=== PATIENT | male | born 1995 | race Caucasian/White ===

== ENCOUNTER 2017-07-29 13:57 | Emergency (ER) | payer BC, MEDICAID ==
[~2017-07-29] VITALS: Ht 177.8 cm; Wt 146.0 kg
[~2017-07-29 13:57] MED LIST: ACET-141 PO; BACTDS PO; BEN25 PO; CARB15DR50 LEFT EAR; CLOT30CR24 TOP; DICY10CA60 PO; FLUC150T17 PO; HYDR-3011 PO; IBUP800T25 PO; NYST15CR16 TOP; PRED20TA PO; TRAM50TA2 PO
[2017-07-29 14:36] VITALS: Ht 177.8 cm; Wt 146.0 kg
--- NOTE | 2017-07-29 16:50 | ERD ---
ER Documentation Chief Complaint Date/Time DATE: 07/29/17 TIME: 16:48 Chief Complaint jeffries x 1 month; no n/v or dizziness HPI This 22-year-old male patient presents to the emergency department today with a right-sided headache, headache is behind his right eye radiating toward occipitalis. Patient reports headache has been present for 4 weeks intermittently, reports postnasal drip and nasal congestion, has history of headaches denies this is a worse headache he has ever felt, denies history of seasonal allergies, fever, cough, or sputum production. ROS All systems reviewed and are negative except as per history of present illness. Medications Home Meds Active Scripts Fluticasone Propionate (Flonase Allergy Relief) 9.9 Ml [place].susp, 2 SPRAY NASAL DAILY, #1 BOTTLE TO EACH NOSTRIL Prov:KARLIE,PATRICIA 07/29/17 Clarithromycin* (Clarithromycin*) 500 Mg Tablet, 500 MG PO BID for 10 Days, TAB Prov:KARLIE,PATRICIA 07/29/17 Hydroxyzine Hcl* (Hydroxyzine Hcl*) 25 Mg Tablet, 25 MG PO Q8H Y for ITCHING, # 30 TAB Prov:LEIA MISTRY NP 05/07/16 Sulfamethoxazole-Trimethoprim* (Bactrim* DS) 800-160 Mg Tab, 1 TAB PO BID for 10 Days, TAB Prov:LEIA MISTRY NP 05/07/16 Ibuprofen* (Motrin*) 800 Mg Tab, 800 MG PO Q6, #30 TAB Prov:YAIMA VENCES MD 09/10/15 Tramadol HCl (Tramadol HCl) 50 Mg Tab, 50 MG PO Q6H Y for PAIN, #20 TAB Prov:YAIMA VENCES MD 09/10/15 Clotrimazole* (Clotrimazole* AF) 1% - 30 Gm Cream.gm., 1 APPLIC TOP BID for 10 Days, TUB Prov:JALIL PIERCE PA-C 07/07/15 Carbamide Peroxide* (Debrox*) 6.5% - 15 Ml Drops, 10 DROP LEFT EAR BID for 4 Days, BOTTLE Prov:JALIL PIERCE PA-C 07/07/15 Acetaminophen* (Acetaminophen*) 500 MG Extra Strength Tablet, 500 MG PO Q4H Y for PAIN AND OR ELEVATED TEMP, #20 TAB Prov:JALIL PIERCE PA-C 07/07/15 Fluconazole* (Diflucan*) 150 Mg Tablet, 150 MG PO ONCE, #1 TAB Prov:CURT JEAN BAPTISTE 06/30/15 Clotrimazole* (Clotrimazole* AF) 1% - 30 Gm Cream.gm., 1 APPLIC TOP BID for 7 Days, TUB Prov:CURT JEAN BAPTISTE 06/30/15 Nystatin-Triamcinolone* (Nystatin-Triamcinolone* Cream) 15 Gm Cream.gm., 1 APPLIC TOP BID for 7 Days, TUB Prov:KAREN BACA MD 06/28/15 Prednisone* (Prednisone*) 20 Mg Tab, 20 MG PO DAILY for 5 Days Prov:BULMARO GUTHRIE PA-C 06/07/15 Diphenhydramine Hcl* (Benadryl*) 25 Mg Cap, 25 MG PO Q6, #20 CAP Prov:BULMARO GUTHRIE PA-C 06/07/15 Dicyclomine Hcl* (Bentyl*) 10 Mg Capsule, 10 MG PO QID, #20 CAP Prov:BULMARO GUTHRIE PA-C 06/07/15 Reported Medications [None ] No Conflict Check 06/08/13 Allergies Allergies: Coded Allergies: Penicillins (Verified Allergy, Mild, 11/05/15) Uncoded Allergies: IV CONTRAST (Allergy, Unknown, 06/28/15) PMhx/Soc History of Surgery: No Anesthesia Reaction: No Hx Neurological Disorder: No Hx Respiratory Disorders: Yes (ASTHMA) Hx Cardiac Disorders: No Hx Psychiatric Problems: No Hx Miscellaneous Medical Probl: No Hx Alcohol Use: No Hx Substance Use: No Hx Tobacco Use: No Physical Exam Vitals Vital Signs Date Time Temp Pulse Resp B/P Pulse Ox O2 Delivery O2 Flow Rate FiO2 07/29/17 14:36 98.2 71 18 136/74 97 Vitals stable, triage notes reviewed Physical Exam Const Well-nourished well-appearing well-hydrated male patient in no acute Head: Atraumatic Eyes: Normal Conjunctiva, PERRLA, EOMI ENT: Lateral tympanic membranes retracted, auditory canals clear, nasal mucosa edematous, +3, mucous noted, no bleeding points, right maxillary frontal sinus pressure to palpation, pressure behind right eye with leaning forward. Pharynx is pink, uvula rises and falls with pronation. Neck: Full range of motion..~ No meningismus.No cervical chain nodes palpable Resp: Clear to auscultation bilaterally, No rales wheezes or rhonchi Cardio: Abd: Skin: Back: Neuro: Alert and oriented Face: EOMI, face and pharynx with normal sensation and function Motor: Normal strength throughout Sensation: Normal sensation throughout Speech: Normal Cerebel: Normal coordination Normal gait Normal finger to nose DTR: 2+ and symmetric upper/lower extremities Psych: Normal Mood and Affect Results 24 hrs Current Medications Medications (Trade) Dose Ordered Sig/Shane Route PRN Reason Start Time Stop Time Status Last Admin Dose Admin Ibuprofen (Motrin) 600 mg ONCE ONCE PO 07/29/17 17:00 07/29/17 17:01 DC 07/29/17 17:04 Procedures/MDM This 22-year-old male patient presents to emergency department today for evaluation of a right-sided headache, pressure behind his eyes, symptoms have been present intermittently 4 weeks, patient has history of headaches in the past this is not his worse headache. He has taken [id number] Tylenol for symptomatic relief with little relief of symptoms. Denies photosensitivity, nausea, vomiting, reports postnasal drip, physical exam and history supports allergic rhinitis/sinusitis, today's treatment includes breaking headache with Toradol 15 intramuscularly, patient reassessed with improvement in headache symptoms. Patient will be discharged home with Clarithromycin 1 tab p.o. twice daily 10 days, Flonase nasal spray 2 squirts each nostril once a day, Claritin 10 mg 1 tab p.o. daily, follow-up with primary care physician, return to emergency department if symptoms fail to improve as anticipated. Patient is stable with no new complaints during ER course, clinically there is no current evidence to suggest meningitis, sepsis,TIA, CVA, subarachnoid bleed or any other emergent condition appearing to require further evaluation or hospitalization. I feel the patient is stable for discharge at this time. I have discussed results, examination findings, the treatment plan with the patient and family present prior to discharge. Indications for emergent reevaluation, side effects of medication were also discussed. All questions were answered. Patient verbalizes understanding and agrees with plan of care. Departure Diagnosis: Primary Impression: Sinusitis, acute Sinusitis location: maxillary Recurrence: not specified as recurrent Qualified Code: J01.00 - Acute maxillary sinusitis, recurrence not specified Condition: Good Patient Instructions: Acute Sinusitis, Preventing Sinusitis Referrals: [facility] Additional Instructions: Thank you for for coming to [facility] for your care today. Please ask your nurse or provider if you have questions about your care today and do not leave until all your questions have been answered. Please use any medications given as directed and follow-up with your doctor (or the doctor you were referred to) in the next 2-3 days. If you do not have a primary care doctor you may follow up at the [facility] (listed below). You may also use motrin and tylenol as needed for fever and/or pain unless instructed otherwise by your provider or nurse. Indications for more urgent follow-up have been discussed, but you may return to the Emergency Department at ANY time for any worrisome or worsening symptoms. If you have abdominal pain, please know that no test or exam you received is perfect and you should follow up within 8 hours for continued pain. If you had any imaging studies today, such as an X-Ray or CT Scan, these studies will be reviewed later by a radiologist. You will be called if there are important findings that were not identified today, so make sure the contact information you provided at registration is correct. If you received any narcotic pain control medicine today, such as Vicodin, Morphine or Dilaudid, your coordination and judgment may be affected for a number of hours. Please do not drive or operate heavy machinery, and you may want someone to assist you at home. If you were given a prescription for narcotic medication, be aware that it is very addictive- use sparingly and only if necessary. PATRICIA ZIEGLER Jul 29, 2017 16:50
[2017-07-29] MEDS ORDERED: IBUPROFEN 600 MG TAB PO ONE (17:00)
[2017-07-29] MEDS ORDERED: CLAR500T PO (18:00)
[2017-07-29] MEDS ORDERED: FLUT9.9S NASAL (18:01)
[2017-07-29] MEDS ORDERED: LORA10CA PO (18:04)
== END 2017-07-29 18:50 | disposition home or self-care (01) ==
LOC: FTE 13:57
DX: J01.00 Acute maxillary sinusitis, unspecified (principal); J45.909 Unspecified asthma, uncomplicated; R40.2142 Coma scale, eyes open, spontaneous, at arrival to emergency department; R40.2252 Coma scale, best verbal response, oriented, at arrival to emergency department; R40.2362 Coma scale, best motor response, obeys commands, at arrival to emergency department
CPT/HCPCS: 99283

== ENCOUNTER 2017-08-08 07:33 | Emergency (ER) | payer BC, MEDICAID ==
[~2017-08-08] VITALS: Ht 175.3 cm; Wt 146.0 kg
[~2017-08-08 07:33] MED LIST changes: +CLAR500T PO; +FLUT9.9S NASAL; +LORA10CA PO
[2017-08-08 07:37] VITALS: Ht 175.3 cm; Wt 146.0 kg
--- NOTE | 2017-08-08 08:12 | ERD ---
ER Documentation Chief Complaint Date/Time DATE: 08/08/17 TIME: 08:00 Chief Complaint c/o nausea s/p swallowed a sips of mouthwash at 6am HPI 22-year-old male coming in complaining of swallowed mouthwash earlier this morning. Patient was using [employer] mouthwash and took a gulp by accident. Denies any abdominal pain. Denies vomiting. Denies nausea. Has not taken any medication since drinking the mouthwash. States he overall feels "normal. Medical problems: Denies Allergies to medication: Penicillin Surgical history: Denies Social history: Denies ROS All systems reviewed and are negative except as per history of present illness. Medications Home Meds Active Scripts Loratadine* (Claritin*) 10 Mg Capsule, 10 MG PO DAILY for 30 Days, CAP Prov:KARLIE,PATRICIA 07/29/17 Fluticasone Propionate (Flonase Allergy Relief) 9.9 Ml [place].susp, 2 SPRAY NASAL DAILY, #1 BOTTLE TO EACH NOSTRIL Prov:KARLIE,PATRICIA 07/29/17 Clarithromycin* (Clarithromycin*) 500 Mg Tablet, 500 MG PO BID for 10 Days, TAB Prov:KARLIE,PATRICIA 07/29/17 Hydroxyzine Hcl* (Hydroxyzine Hcl*) 25 Mg Tablet, 25 MG PO Q8H Y for ITCHING, # 30 TAB Prov:LEIA MISTRY NP 05/07/16 Sulfamethoxazole-Trimethoprim* (Bactrim* DS) 800-160 Mg Tab, 1 TAB PO BID for 10 Days, TAB Prov:LEIA MISTRY NP 05/07/16 Ibuprofen* (Motrin*) 800 Mg Tab, 800 MG PO Q6, #30 TAB Prov:YAIMA VENCES MD 09/10/15 Tramadol HCl (Tramadol HCl) 50 Mg Tab, 50 MG PO Q6H Y for PAIN, #20 TAB Prov:YAIMA VENCES MD 09/10/15 Clotrimazole* (Clotrimazole* AF) 1% - 30 Gm Cream.gm., 1 APPLIC TOP BID for 10 Days, TUB Prov:JALIL IPERCE PA-C 07/07/15 Carbamide Peroxide* (Debrox*) 6.5% - 15 Ml Drops, 10 DROP LEFT EAR BID for 4 Days, BOTTLE Prov:JALIL PIERCE PA-C 07/07/15 Acetaminophen* (Acetaminophen*) 500 MG Extra Strength Tablet, 500 MG PO Q4H Y for PAIN AND OR ELEVATED TEMP, #20 TAB Prov:JALIL PIERCE PA-C 07/07/15 Fluconazole* (Diflucan*) 150 Mg Tablet, 150 MG PO ONCE, #1 TAB Prov:CURT JEAN BAPTISTE 06/30/15 Clotrimazole* (Clotrimazole* AF) 1% - 30 Gm Cream.gm., 1 APPLIC TOP BID for 7 Days, TUB Prov:CURT JEAN BAPTISTE 06/30/15 Nystatin-Triamcinolone* (Nystatin-Triamcinolone* Cream) 15 Gm Cream.gm., 1 APPLIC TOP BID for 7 Days, TUB Prov:KAREN BACA MD 06/28/15 Prednisone* (Prednisone*) 20 Mg Tab, 20 MG PO DAILY for 5 Days Prov:BULMARO GUTHRIE PA-C 06/07/15 Diphenhydramine Hcl* (Benadryl*) 25 Mg Cap, 25 MG PO Q6, #20 CAP Prov:BULMARO GUTHRIE PA-C 06/07/15 Dicyclomine Hcl* (Bentyl*) 10 Mg Capsule, 10 MG PO QID, #20 CAP Prov:BULMARO GUTHRIE PA-C 06/07/15 Reported Medications [None ] No Conflict Check 06/08/13 Allergies Allergies: Coded Allergies: Penicillins (Verified Allergy, Mild, 08/08/17) Uncoded Allergies: IV CONTRAST (Allergy, Unknown, 06/28/15) PMhx/Soc History of Surgery: No Anesthesia Reaction: No Hx Neurological Disorder: No Hx Respiratory Disorders: No Hx Cardiac Disorders: No Hx Psychiatric Problems: No Hx Miscellaneous Medical Probl: No Hx Alcohol Use: No Hx Substance Use: No Hx Tobacco Use: No Physical Exam Vitals Vital Signs Date Time Temp Pulse Resp B/P Pulse Ox O2 Delivery O2 Flow Rate FiO2 08/08/17 07:37 98.0 79 18 131/76 97 Physical Exam GENERAL: The patient is well-appearing, well-nourished, in no acute distress CHEST: Clear to auscultation bilaterally. There are no rales, wheezes or rhonchi. HEART: Regular rate and rhythm. No murmurs, clicks, rubs or gallops. No S3 or S4. ABDOMEN:Soft, nontender and nondistended. Good bowel sounds. No rebound or guarding. No gross peritonitis. No gross organomegaly or masses. No Bryant sign or McBurney point tenderness. BACK: No midline or flank tenderness. SKIN: There is no apparent rash or petechiae. The skin is warm and dry. Procedures/MDM MDM: 22 yr old male complaining of swallowed mouth wash. I consulted poison control and they stated patient is fine and there is no concern for poisoning. Given patient has had no symptoms and ingestion was 2 hours ago patient is able to be discharged without complication. I have low suspicion for abdominal upset or complication. Patient's exam was not concerning. Patient is discharged with strict ER precautions and recommended to follow-up with primary care within 1-2 days for close evaluation. Departure Diagnosis: Primary Impression: Swallowing of injurious substance Condition: Stable Patient Instructions: Swallowed Object Referrals: [facility] YOU HAVE RECEIVED A MEDICAL SCREENING EXAM AND THE RESULTS INDICATE THAT YOU DO NOT HAVE A CONDITION THAT REQUIRES URGENT TREATMENT IN THE EMERGENCY DEPARTMENT. FURTHER EVALUATION AND TREATMENT OF YOUR CONDITION CAN WAIT UNTIL YOU ARE SEEN IN YOUR DOCTORS OFFICE WITHIN THE NEXT 1-2 DAYS. IT IS YOUR RESPONSIBILITY TO MAKE AN APPOINTMENT FOR FOLOW-UP CARE. IF YOU HAVE A PRIMARY DOCTOR --you should call your primary doctor and schedule an appointment IF YOU DO NOT HAVE A PRIMARY DOCTOR YOU CAN CALL OUR PHYSICIAN REFERRAL HOTLINE AT IF YOU CAN NOT AFFORD TO SEE A PHYSICIAN YOU CAN CHOSE FROM THE FOLLOWING [facility] [address] [facility] [address] [facility] [address] [facility] [address] [facility] [address] [facility]. [address] Additional Instructions: FOLLOW UP WITH YOUR PRIMARY CARE PHYSICIAN TOMORROW.Return to this facility if you are not improving as expected. CHI MONTGOMERY PA-C Aug 08, 2017 08:12
== END 2017-08-08 08:07 | disposition home or self-care (01) ==
LOC: FTE 07:33
DX: T65.91XA Toxic effect of unspecified substance, accidental (unintentional), initial encounter (principal)
CPT/HCPCS: 99282

== ENCOUNTER 2017-08-27 15:17 | Emergency (ER) | payer BC, MEDICAID ==
[~2017-08-27] VITALS: Ht 175.3 cm; Wt 145.0 kg
[2017-08-27 15:29] VITALS: Ht 175.3 cm; Wt 145.0 kg
[2017-08-27] MEDS ORDERED: IBUPROFEN 800 MG TAB PO ONE (17:30)
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
--- NOTE | 2017-08-27 18:11 | RADRPT ---
PROCEDURE: XR Right Ankle. CLINICAL INDICATION: Right ankle pain. TECHNIQUE: 3 views. Frontal, lateral, and oblique. COMPARISON: None. FINDINGS: There is no acute fracture or dislocation. There is an old healed fracture of the distal fibula. The soft tissues are normal. Articular surfaces are intact. There is no lytic or blastic lesion. There is no radiopaque foreign body. IMPRESSION: 1. Old healed fracture of the distal fibula. 2. Otherwise unremarkable images of the right ankle. RPTAT: QQ .Joey Trevino MD, MD Date Time Electronically viewed and signed by .Joey Trevino MD, on 08/27/2017 18:11 .R/
[2017-08-27] MEDS ORDERED: NAPR-260 PO (18:26)
[2017-08-27] MEDS ORDERED: ACET500C5 PO (18:26)
== END 2017-08-27 18:49 | disposition home or self-care (01) ==
LOC: FTE 15:17
DX: M25.571 Pain in right ankle and joints of right foot (principal)

== ENCOUNTER 2017-10-01 13:13 | Emergency (ER) | payer BC, MEDICAID ==
[~2017-10-01] VITALS: Ht 175.3 cm; Wt 145.1 kg
[~2017-10-01 13:13] MED LIST changes: +ACET500C5 PO; +NAPR-260 PO
[2017-10-01 13:15] VITALS: Ht 175.3 cm; Wt 145.1 kg
--- NOTE | 2017-10-01 14:30 | ERD ---
ER Documentation Chief Complaint Chief Complaint SOB WITH CHEST WALL PRESSURE RADIATES UP TO THROAT HPI 22-year-old male presents emergency department with chest wall pain that radiates to his throat. Stated that this started yesterday before working, he feels like throat is closing every time he thinks about his job. Denies headache, dizziness, blurred vision, neck pain, shoulder pain, abdominal pain, nausea, vomiting, constipation, diarrhea, fever, chills, urinary symptoms , recent long travel, recent exposure to any illness, difficulty walking. Denies auditory/visual hallucinations/delusions. Not suicidal. Not homicidal. Has the capacity to decide for himself. Allergies to penicillin and contrast. Past medical history: None. No surgical history. Social: Works at [employer]. Denies smoking, use of alcoholic beverages, use of illegal drugs. ROS All systems reviewed and are negative except as per history of present illness. Medications Home Meds Active Scripts Azithromycin* (Zithromax*) 250 Mg Tablet, 250 MG PO .ZPACK DIRECTED, #6 TAB TAKE 500 MG (2 TABS) THE FIRST DAY THEN 250 MG (1 TAB) DAYS 2-5 Prov:MARYGABRIELLABLAINE 10/01/17 Ibuprofen* (Motrin*) 800 Mg Tab, 800 MG PO Q8 Y for PAIN AND OR ELEVATED TEMP, # 30 TAB Prov:BLAINE DO 10/01/17 Hydroxyzine Hcl* (Hydroxyzine Hcl*) 50 Mg Tablet, 50 MG PO Q6 Y for ANXIETY, # 40 TAB Prov:BLAINE DO 10/01/17 Acetaminophen* (Tylophen*) 500 Mg Capsule, 1 CAP PO Q6H Y for PAIN AND OR ELEVATED TEMP, #30 CAP Prov:MINO MCGINNIS PA-C 08/27/17 Naproxen* (Naprosyn*) 500 Mg Tablet, 500 MG PO BID Y for PAIN AND/OR INFLAMMATION, #30 TAB Prov:MINO MCGINNIS PA-C 08/27/17 Loratadine* (Claritin*) 10 Mg Capsule, 10 MG PO DAILY for 30 Days, CAP Prov:KARLIEPATRICIA 07/29/17 Fluticasone Propionate (Flonase Allergy Relief) 9.9 Ml [place].susp, 2 SPRAY NASAL DAILY, #1 BOTTLE TO EACH NOSTRIL Prov:KARLIE,PATRICIA 07/29/17 Clarithromycin* (Clarithromycin*) 500 Mg Tablet, 500 MG PO BID for 10 Days, TAB Prov:KARLIE,PATRICIA 07/29/17 Hydroxyzine Hcl* (Hydroxyzine Hcl*) 25 Mg Tablet, 25 MG PO Q8H Y for ITCHING, # 30 TAB Prov:LEIA MISTRY KISS MIXER 05/07/16 Sulfamethoxazole-Trimethoprim* (Bactrim* DS) 800-160 Mg Tab, 1 TAB PO BID for 10 Days, TAB Prov:LEIA MISTRY KISS MIXER 05/07/16 Ibuprofen* (Motrin*) 800 Mg Tab, 800 MG PO Q6, #30 TAB Prov:YAIMA VENCES MD 09/10/15 Tramadol HCl (Tramadol HCl) 50 Mg Tab, 50 MG PO Q6H Y for PAIN, #20 TAB Prov:YAIMA VENCES MD 09/10/15 Clotrimazole* (Clotrimazole* AF) 1% - 30 Gm Cream.gm., 1 APPLIC TOP BID for 10 Days, TUB Prov:JALIL PIERCE PA-C 07/07/15 Carbamide Peroxide* (Debrox*) 6.5% - 15 Ml Drops, 10 DROP LEFT EAR BID for 4 Days, BOTTLE Prov:JALIL PIERCE-C 07/07/15 Acetaminophen* (Acetaminophen*) 500 MG Extra Strength Tablet, 500 MG PO Q4H Y for PAIN AND OR ELEVATED TEMP, #20 TAB Prov:JALIL PIERCEC 07/07/15 Fluconazole* (Diflucan*) 150 Mg Tablet, 150 MG PO ONCE, #1 TAB Prov:CURT JEAN BAPTISTE 06/30/15 Clotrimazole* (Clotrimazole* AF) 1% - 30 Gm Cream.gm., 1 APPLIC TOP BID for 7 Days, TUB Prov:CURT JEAN BAPTISTE 06/30/15 Nystatin-Triamcinolone* (Nystatin-Triamcinolone* Cream) 15 Gm Cream.gm., 1 APPLIC TOP BID for 7 Days, TUB Prov:KAREN BACA MD 06/28/15 Prednisone* (Prednisone*) 20 Mg Tab, 20 MG PO DAILY for 5 Days Prov:BULMARO GUTHRIE PA-C 06/07/15 Diphenhydramine Hcl* (Benadryl*) 25 Mg Cap, 25 MG PO Q6, #20 CAP Prov:BULMARO GUTHRIE PA-C 06/07/15 Dicyclomine Hcl* (Bentyl*) 10 Mg Capsule, 10 MG PO QID, #20 CAP Prov:BULMARO GUTHRIE PA-C 06/07/15 Reported Medications [None ] No Conflict Check 06/08/13 Allergies Allergies: Coded Allergies: Penicillins (Verified Allergy, Mild, 08/27/17) Uncoded Allergies: IV CONTRAST (Allergy, Mild, 08/27/17) PMhx/Soc Medical and Surgical Hx: pt denies Medical Hx, pt denies Surgical Hx History of Surgery: No Anesthesia Reaction: No Hx Neurological Disorder: No Hx Respiratory Disorders: No Hx Cardiac Disorders: No Hx Psychiatric Problems: No Hx Miscellaneous Medical Probl: No Hx Alcohol Use: No Hx Substance Use: No Hx Tobacco Use: No Smoking Status: Never smoker Physical Exam Vitals Vital Signs Date Time Temp Pulse Resp B/P Pulse Ox O2 Delivery O2 Flow Rate FiO2 10/01/17 13:15 98.5 85 16 134/73 97 Physical Exam Const: [] Head: Atraumatic Eyes: Normal Conjunctiva ENT: Normal External Ears, Nose and Mouth. Except left TM is erythematous. Neck: Full range of motion..~ No meningismus. Resp: Clear to auscultation bilaterally Cardio: Regular rate and rhythm, no murmurs Abd: Soft, non tender, non distended. Normal bowel sounds Skin: No petechiae or rashes Back: No midline or flank tenderness Ext: No cyanosis, or edema Neur: Awake and alert Psych: Normal Mood and Affect. Denies auditory/visual hallucinations/ delusions. Not suicidal. Not homicidal. Has the capacity to decide for himself. Procedures/MDM 22-year-old male presents emergency department with chest wall pain that radiates to his throat. Stated that this started yesterday before working, he feels like throat is closing every time he thinks about his job. Denies headache, dizziness, blurred vision, neck pain, shoulder pain, abdominal pain, nausea, vomiting, constipation, diarrhea, fever, chills, urinary symptoms , recent long travel, recent exposure to any illness, difficulty walking. Denies auditory/visual hallucinations/delusions. Not suicidal. Not homicidal. Has the capacity to decide for himself. Allergies to penicillin and contrast. Past medical history: None. No surgical history. Social: Works at [employer]. Denies smoking, use of alcoholic beverages, use of illegal drugs. Physical exam: Unremarkable Except left TM is erythematous. Denies auditory/ visual hallucinations/delusions. Not suicidal. Not homicidal. Has the capacity to decide for himself. EKG: Sinus rhythm with a ventricular rate of 77 bpm. No evidence of acute myocardial infarction. No STEMI. Patient agreed with the plan of care. Patient stated that he needs a work note and is just anxious to go to work. Prescription: Hydroxyzine. Azithromycin. Motrin. Tylenol. Differential diagnosis: Acute myocardial infarction versus acute coronary syndrome versus pneumonia versus anxiety versus stress anxiety versus tonsillitis versus pharyngitis versus panic attack Final diagnosis: Otitis media left, anxiety due to stress. Follow-up with primary care physician the next 24-48 hours. Come back to emergency department for any new symptoms or any worsening of symptoms. All questions and concerns were answered. Patient verbalized understanding and agreed with the plan of care. Hemodynamically stable on discharge. Departure Diagnosis: Primary Impression: Otitis media Additional Impressions: Stress Anxiety Condition: Stable Additional Instructions: Follow-up with primary care physician the next 24-48 hours. Come back to emergency department for any new symptoms or any worsening of symptoms. All questions and concerns were answered. Patient verbalized understanding and agreed with the plan of care. BLAINE DO Oct 01, 2017 14:30
[2017-10-01] MEDS ORDERED: HYDR-3012 PO (14:31)
[2017-10-01] MEDS ORDERED: IBUP800T25 PO (14:32)
[2017-10-01] MEDS ORDERED: AZIT250T94 PO (14:32)
== END 2017-10-01 14:53 | disposition home or self-care (01) ==
LOC: FTE 13:13
DX: H66.92 Otitis media, unspecified, left ear (principal); F43.9 Reaction to severe stress, unspecified; F41.9 Anxiety disorder, unspecified
CPT/HCPCS: 93005

== ENCOUNTER 2017-10-06 00:04 | Emergency (ER) | payer BC, MEDICAID ==
[~2017-10-06] VITALS: Ht 175.3 cm; Wt 146.5 kg
[~2017-10-06 00:04] MED LIST changes: +AZIT250T94 PO; +HYDR-3012 PO
[2017-10-06 00:06] VITALS: Ht 175.3 cm; Wt 146.5 kg
--- NOTE | 2017-10-06 00:45 | ERD ---
ER Documentation Chief Complaint Chief Complaint chest pain x 2 weeks HPI 22-year-old male presents here to emergency department for complaints of on and off chest pain for 2 weeks. Patient describes the pain as sharp pain, intermittent pain, 6/10 scale, accompanied with palpitations, patient states that he gets whenever he thinks about work, feels stressed out about work. Patient denies any dyspnea on exertion or dizzy on lying down. Patient denies any dizziness. Patient denies any suicidal or homicidal ideations. Patient denies any nausea or vomiting. Patient does not have any wheezing. Patient does not have any cough. ROS All systems reviewed and are negative except as per history of present illness. Medications Home Meds Active Scripts Azithromycin* (Zithromax*) 250 Mg Tablet, 250 MG PO .BertramPACK DIRECTED, #6 TAB TAKE 500 MG (2 TABS) THE FIRST DAY THEN 250 MG (1 TAB) DAYS 2-5 Prov:HIBLAINE Colindres 10/01/17 Ibuprofen* (Motrin*) 800 Mg Tab, 800 MG PO Q8 Y for PAIN AND OR ELEVATED TEMP, # 30 TAB Prov:MARYGABRIELLABLAINE Colindres 10/01/17 Hydroxyzine Hcl* (Hydroxyzine Hcl*) 50 Mg Tablet, 50 MG PO Q6 Y for ANXIETY, # 40 TAB Prov:MARYGABRIELLABLAINE 10/01/17 Acetaminophen* (Tylophen*) 500 Mg Capsule, 1 CAP PO Q6H Y for PAIN AND OR ELEVATED TEMP, #30 CAP Prov:MINO MCGINNIS PA-C 08/27/17 Naproxen* (Naprosyn*) 500 Mg Tablet, 500 MG PO BID Y for PAIN AND/OR INFLAMMATION, #30 TAB Prov:MINO MCGINNIS PA-C 08/27/17 Loratadine* (Claritin*) 10 Mg Capsule, 10 MG PO DAILY for 30 Days, CAP Prov:KARLIE,PATRICIA 07/29/17 Fluticasone Propionate (Flonase Allergy Relief) 9.9 Ml [place].susp, 2 SPRAY NASAL DAILY, #1 BOTTLE TO EACH NOSTRIL Prov:KARLIE,PATRICIA 07/29/17 Clarithromycin* (Clarithromycin*) 500 Mg Tablet, 500 MG PO BID for 10 Days, TAB Prov:KARLIE,PATRICIA 07/29/17 Hydroxyzine Hcl* (Hydroxyzine Hcl*) 25 Mg Tablet, 25 MG PO Q8H Y for ITCHING, # 30 TAB Prov:LEIA MISTRY NP 05/07/16 Sulfamethoxazole-Trimethoprim* (Bactrim* DS) 800-160 Mg Tab, 1 TAB PO BID for 10 Days, TAB Prov:LEIA MISTRY CLIENT RELATION SPECIALIST 05/07/16 Ibuprofen* (Motrin*) 800 Mg Tab, 800 MG PO Q6, #30 TAB Prov:YAIMA VENCES MD 09/10/15 Tramadol HCl (Tramadol HCl) 50 Mg Tab, 50 MG PO Q6H Y for PAIN, #20 TAB Prov:YAIMA VENCES MD 09/10/15 Clotrimazole* (Clotrimazole* AF) 1% - 30 Gm Cream.gm., 1 APPLIC TOP BID for 10 Days, TUB Prov:JALIL PIERCE PA-C 07/07/15 Carbamide Peroxide* (Debrox*) 6.5% - 15 Ml Drops, 10 DROP LEFT EAR BID for 4 Days, BOTTLE Prov:JALIL PIERCE PA-C 07/07/15 Acetaminophen* (Acetaminophen*) 500 MG Extra Strength Tablet, 500 MG PO Q4H Y for PAIN AND OR ELEVATED TEMP, #20 TAB Prov:JALIL PIERCE PA-C 07/07/15 Fluconazole* (Diflucan*) 150 Mg Tablet, 150 MG PO ONCE, #1 TAB Prov:CURT JEAN BAPTISTE 06/30/15 Clotrimazole* (Clotrimazole* AF) 1% - 30 Gm Cream.gm., 1 APPLIC TOP BID for 7 Days, TUB Prov:CURT JEAN BAPTISTE 06/30/15 Nystatin-Triamcinolone* (Nystatin-Triamcinolone* Cream) 15 Gm Cream.gm., 1 APPLIC TOP BID for 7 Days, TUB Prov:KAREN BACA MD 06/28/15 Prednisone* (Prednisone*) 20 Mg Tab, 20 MG PO DAILY for 5 Days Prov:BULMARO GUTHRIEC 06/07/15 Diphenhydramine Hcl* (Benadryl*) 25 Mg Cap, 25 MG PO Q6, #20 CAP Prov:BULMARO GUTHRIE PA-C 06/07/15 Dicyclomine Hcl* (Bentyl*) 10 Mg Capsule, 10 MG PO QID, #20 CAP Prov:BULMRAO GUTHRIE PA-C 06/07/15 Reported Medications [None ] No Conflict Check 06/08/13 Allergies Allergies: Coded Allergies: Penicillins (Verified Allergy, Mild, 08/27/17) Uncoded Allergies: IV CONTRAST (Allergy, Mild, 08/27/17) PMhx/Soc Medical and Surgical Hx: pt denies Surgical Hx History of Surgery: No Anesthesia Reaction: No Hx Neurological Disorder: No Hx Respiratory Disorders: Yes (asthma) Hx Cardiac Disorders: No Hx Psychiatric Problems: No Hx Miscellaneous Medical Probl: No Hx Alcohol Use: No Hx Substance Use: No Hx Tobacco Use: No Smoking Status: Never smoker FmHx Family History: No coronary disease, No diabetes, No other Physical Exam Vitals Vital Signs Date Time Temp Pulse Resp B/P Pulse Ox O2 Delivery O2 Flow Rate FiO2 10/06/17 00:06 97.4 80 20 136/74 98 Physical Exam GENERAL: The patient is well developed and appropriate for usual state of health, in no apparent distress. CHEST: Clear to auscultation bilaterally. There are no rales, wheezes or rhonchi. HEART: Regular rate and rhythm. No murmurs, clicks, rubs or gallops. No S3 or S4. ABDOMEN: Soft, nontender and nondistended. Good bowel sounds. No rebound or guarding. No gross peritonitis. No gross organomegaly or masses. No Bryant sign or McBurney point tenderness. BACK: No midline or flank tenderness. EXTREMITIES: Equal pulses bilaterally. There is no peripheral clubbing, cyanosis or edema. No focal swelling or erythema. Full range of motion. Grossly neurovascularly intact. NEURO: Alert and oriented. Cranial nerves 2-12 intact. Motor strength in all 4 extremities with 5/5 strength. Sensation grossly intact. Normal speech and gait. SKIN: There is no apparent rash or petechia. The skin is warm and dry. HEMATOLOGIC AND LYMPHATIC: There is no evidence of excessive bruising or lymphedema. No gross cervical, axillary, or inguinal lymphadenopathy. Psychiatric: Patient is calm and cooperative, feels anxious at this time. Not verbalizing homicidal or suicidal ideations. Results 24 hrs EKG was done, read by me and is normal sinus rhythm at a rate of 78, normal axis , there is no ST changes or changes in the EKG that indicates any cardiac emergencies at this time. Patient's EKG was also reviewed by Dr. Mccain. Impression: no acute findings on EKG PROCEDURE: XR Chest. CLINICAL INDICATION: Chest pain. TECHNIQUE: AP Portable chest. COMPARISON: 07/07/2015 FINDINGS: The cardiomediastinal silhouette is normal. The lungs are clear. The osseous structures are unremarkable. IMPRESSION: No acute findings. RPTAT: HIKT .John Husain MD, MD Date Time Electronically viewed and signed by .John Husain MD, MD on 10/06/2017 01:36 .T/ CC: LEIA MISTRY CLIENT RELATION SPECIALIST Procedures/MDM Medical Decision Making: Chest pain and palpitations most likely is consistent with anxiety. There is low suspicion for cardiopulmonary emergencies at this time. Patient has low risk factors. EKG is normal, there is no changes in the EKG that indicates cardiac emergencies. Chest X-ray does not show cardiopulmonary emergencies at this time. There is low suspicion for aortic aneurysm, myocardial infarction, pneumothorax, pleural effusion, pulmonary embolism, or any other cardiopulmonary emergencies at this time. Patient was given prescription for Xanax few pills to help with anxiety, was given ibuprofen for pain, is advised to follow-up with primary care doctor 1-2 days for reevaluation of symptoms. Patient was advised to return to emergency department for any worsening symptoms. Dispostion: Home. Stable Disclaimer: Inadvertent spelling and grammatical errors are likely due to EHR/ dictation software use and do not reflect on the overall quality of patient care. Also, please note that the electronic time recorded on this note does not necessarily reflect the actual time of the patient encounter. Departure Diagnosis: Primary Impression: Atypical chest pain Additional Impression: Anxiety Condition: Stable Patient Instructions: Anxiety Reaction, Chest Pain, Uncertain Cause LEIA MISTRY NP Oct 06, 2017 00:45
--- NOTE | 2017-10-06 01:36 | RADRPT ---
PROCEDURE: XR Chest. CLINICAL INDICATION: Chest pain. TECHNIQUE: AP Portable chest. COMPARISON: 07/07/2015 FINDINGS: The cardiomediastinal silhouette is normal. The lungs are clear. The osseous structures are unrema rkable. IMPRESSION: No acute findings. RPTAT: HIKT .John Husain MD, MD Date Time Electronically viewed and signed by .John Husain MD, MD on 10/06/2017 01:36 .T/
[2017-10-06] MEDS ORDERED: IBUP-1542 PO (02:01)
[2017-10-06] MEDS ORDERED: ALPR0.25 PO (02:01)
[2017-10-06 02:10] VITALS: BP 134/66; PULSE 84; RESP 18; TEMP 98.2
== END 2017-10-06 02:10 | disposition home or self-care (01) ==
LOC: FTE 00:04
DX: R07.89 Other chest pain (principal); F41.9 Anxiety disorder, unspecified
CPT/HCPCS: 71010; 93005

== ENCOUNTER 2017-10-07 23:26 | Emergency (ER) | payer BC, MEDICAID ==
[~2017-10-07] VITALS: Ht 177.8 cm; Wt 146.7 kg
[~2017-10-07 23:26] MED LIST changes: +ALPR0.25 PO; +IBUP-1542 PO
[2017-10-08 00:11] VITALS: Ht 177.8 cm; Wt 146.7 kg
--- NOTE | 2017-10-08 05:21 | ERD ---
ER Documentation Chief Complaint Chief Complaint c/o "anxiety" does not want to take anti anxiety med at home HPI 22-year-old male presents here to emergency department for possible note for work, patient was unable to go to work since she is still continuously being anxious, is already trying to see o primary care doctor this morning. Patient was able to control his anxiety using his anxiety medications. Patient does not have any other symptoms at this time. ROS All systems reviewed and are negative except as per history of present illness. Medications Home Meds Active Scripts Ibuprofen* (Motrin*) 600 Mg Tab, 600 MG PO Q6H Y for PAIN AND OR ELEVATED TEMP, #30 TAB Prov:LEIA MISTRY HEAD CASHIER 10/06/17 Alprazolam* (Xanax*) 0.25 Mg Tablet, 0.25 MG PO Q8H Y for ANXIETY, #7 TAB Prov:LEIA MISTRY HEAD CASHIER 10/06/17 Azithromycin* (Zithromax*) 250 Mg Tablet, 250 MG PO .JOSÉCK DIRECTED, #6 TAB TAKE 500 MG (2 TABS) THE FIRST DAY THEN 250 MG (1 TAB) DAYS 2-5 Prov:PASILAGABRIELLABLAINE Bernadine 10/01/17 Ibuprofen* (Motrin*) 800 Mg Tab, 800 MG PO Q8 Y for PAIN AND OR ELEVATED TEMP, # 30 TAB Prov:HEMANTILABLAINE QUIROZ 10/01/17 Hydroxyzine Hcl* (Hydroxyzine Hcl*) 50 Mg Tablet, 50 MG PO Q6 Y for ANXIETY, # 40 TAB Prov:MARYGABRIELLABLAINE 10/01/17 Acetaminophen* (Tylophen*) 500 Mg Capsule, 1 CAP PO Q6H Y for PAIN AND OR ELEVATED TEMP, #30 CAP Prov:MINO MCGINNIS PA-C 08/27/17 Naproxen* (Naprosyn*) 500 Mg Tablet, 500 MG PO BID Y for PAIN AND/OR INFLAMMATION, #30 TAB Prov:MINO MCGINNIS PA-C 08/27/17 Loratadine* (Claritin*) 10 Mg Capsule, 10 MG PO DAILY for 30 Days, CAP Prov:KARLIEPATRICIA 07/29/17 Fluticasone Propionate (Flonase Allergy Relief) 9.9 Ml [place].susp, 2 SPRAY NASAL DAILY, #1 BOTTLE TO EACH NOSTRIL Prov:KARLIE,PATRICIA 07/29/17 Clarithromycin* (Clarithromycin*) 500 Mg Tablet, 500 MG PO BID for 10 Days, TAB Prov:KARLIE,PATRICIA 07/29/17 Hydroxyzine Hcl* (Hydroxyzine Hcl*) 25 Mg Tablet, 25 MG PO Q8H Y for ITCHING, # 30 TAB Prov:LEIA MISTRY NP 05/07/16 Sulfamethoxazole-Trimethoprim* (Bactrim* DS) 800-160 Mg Tab, 1 TAB PO BID for 10 Days, TAB Prov:LEIA MISTRY NP 05/07/16 Ibuprofen* (Motrin*) 800 Mg Tab, 800 MG PO Q6, #30 TAB Prov:YAIMA VENCES MD 09/10/15 Tramadol HCl (Tramadol HCl) 50 Mg Tab, 50 MG PO Q6H Y for PAIN, #20 TAB Prov:YAIMA VENCES MD 09/10/15 Clotrimazole* (Clotrimazole* AF) 1% - 30 Gm Cream.gm., 1 APPLIC TOP BID for 10 Days, TUB Prov:JALIL PIERCE PA-C 07/07/15 Carbamide Peroxide* (Debrox*) 6.5% - 15 Ml Drops, 10 DROP LEFT EAR BID for 4 Days, BOTTLE Prov:JALIL PIERCE-C 07/07/15 Acetaminophen* (Acetaminophen*) 500 MG Extra Strength Tablet, 500 MG PO Q4H Y for PAIN AND OR ELEVATED TEMP, #20 TAB Prov:JALIL PIERECC 07/07/15 Fluconazole* (Diflucan*) 150 Mg Tablet, 150 MG PO ONCE, #1 TAB Prov:CURT JEAN BAPTISTE 06/30/15 Clotrimazole* (Clotrimazole* AF) 1% - 30 Gm Cream.gm., 1 APPLIC TOP BID for 7 Days, TUB Prov:CURT JEAN BAPTISTE 06/30/15 Nystatin-Triamcinolone* (Nystatin-Triamcinolone* Cream) 15 Gm Cream.gm., 1 APPLIC TOP BID for 7 Days, TUB Prov:KAREN BACA MD 06/28/15 Prednisone* (Prednisone*) 20 Mg Tab, 20 MG PO DAILY for 5 Days Prov:BULMARO GUTHRIE PA-C 06/07/15 Diphenhydramine Hcl* (Benadryl*) 25 Mg Cap, 25 MG PO Q6, #20 CAP Prov:BULMARO GUTHRIE PA-C 06/07/15 Dicyclomine Hcl* (Bentyl*) 10 Mg Capsule, 10 MG PO QID, #20 CAP Prov:BULMARO GUTHRIE PA-C 06/07/15 Reported Medications [None ] No Conflict Check 06/08/13 Allergies Allergies: Coded Allergies: Penicillins (Verified Allergy, Mild, 08/27/17) Uncoded Allergies: IV CONTRAST (Allergy, Mild, 08/27/17) PMhx/Soc History of Surgery: No Anesthesia Reaction: No Hx Neurological Disorder: No Hx Respiratory Disorders: Yes (asthma) Hx Cardiac Disorders: No Hx Psychiatric Problems: No Hx Miscellaneous Medical Probl: No Hx Alcohol Use: No Hx Substance Use: No Hx Tobacco Use: No Smoking Status: Never smoker FmHx Family History: No coronary disease, No diabetes, No other Physical Exam Vitals Vital Signs Date Time Temp Pulse Resp B/P Pulse Ox O2 Delivery O2 Flow Rate FiO2 10/08/17 00:11 98.0 82 20 145/83 95 Physical Exam GENERAL: The patient is well developed and appropriate for usual state of health, in no apparent distress. CHEST: Clear to auscultation bilaterally. There are no rales, wheezes or rhonchi. HEART: Regular rate and rhythm. No murmurs, clicks, rubs or gallops. No S3 or S4. ABDOMEN: Soft, nontender and nondistended. Good bowel sounds. No rebound or guarding. No gross peritonitis. No gross organomegaly or masses. No Bryant sign or McBurney point tenderness. BACK: No midline or flank tenderness. EXTREMITIES: Equal pulses bilaterally. There is no peripheral clubbing, cyanosis or edema. No focal swelling or erythema. Full range of motion. Grossly neurovascularly intact. NEURO: Alert and oriented. Cranial nerves 2-12 intact. Motor strength in all 4 extremities with 5/5 strength. Sensation grossly intact. Normal speech and gait. SKIN: There is no apparent rash or petechia. The skin is warm and dry. HEMATOLOGIC AND LYMPHATIC: There is no evidence of excessive bruising or lymphedema. No gross cervical, axillary, or inguinal lymphadenopathy. PSYCHIATRIC: Patient is calm and cooperative, not verbalizing homicidal or suicidal ideations Procedures/MDM Medical decision making: Patient symptoms of anxiety is controlled at this time , wanted a note for work. Patient was given note for work, as was advised to see deployment specialist, primary care doctor for further evaluation and management of his anxiety. Patient has an appointment this morning. Patient does not have any symptoms of any psychiatric emergencies at this time. Disposition: Home. Stable. Departure Diagnosis: Primary Impression: Anxiety attack Condition: Stable Patient Instructions: Anxiety Reaction Additional Instructions: see deployment specialist for management LEIA MISTRY NP Oct 08, 2017 05:21
== END 2017-10-08 04:45 | disposition home or self-care (01) ==
LOC: FTE 23:26
DX: F41.9 Anxiety disorder, unspecified (principal); J45.909 Unspecified asthma, uncomplicated
CPT/HCPCS: 99284

== ENCOUNTER 2018-06-06 15:06 | Emergency (ER) | END 2018-06-06 17:02 | disposition home or self-care (01) ==

== ENCOUNTER 2018-10-22 10:14 | Emergency (ER) | END 2018-10-22 11:28 | disposition home or self-care (01) ==

== ENCOUNTER 2018-12-06 09:27 | Emergency (ER) | payer SELFPAY ==
[~2018-12-06] VITALS: Ht 175.3 cm; Wt 136.9 kg
[~2018-12-06 09:27] MED LIST changes: +AZIT250T PO; -AZIT250T94 PO; +BENA20TA65 PO; +D-ME473S2 PO; +DICY10CA40 PO; -DICY10CA60 PO; +FLUC150T PO; -FLUC150T17 PO; -HYDR-3011 PO; -HYDR-3012 PO; +HYDR-843 PO; +HYDR50TA15 PO; -IBUP800T25 PO; +IBUP800T48 PO; -NAPR-260 PO; +NAPR-985 PO; -NYST15CR16 TOP; +NYST15CR36 TOP
[2018-12-06 09:30] VITALS: Ht 175.3 cm; Wt 136.9 kg
--- NOTE | 2018-12-06 09:45 | ERD ---
ER Documentation Chief Complaint Chief Complaint chest pain, vomitting/diarrhea and abdominal pain since last night, HPI This is a 23-year-old male presents for evaluation of chest pain, vomiting and diarrhea with epigastric pain since last night. His symptoms have improved now, however he states he wanted to get checked out. He has a history of prediabetes, and takes oral medications for this. He has had no fever. He has no cardiac history ROS All systems reviewed and are negative except as per history of present illness. Medications Home Meds Active Scripts Ondansetron (Ondansetron Odt) 4 Mg Tab.rapdis, 4 MG PO Q6H PRN for NAUSEA AND/OR VOMITING, #10 TAB Prov:TOMEKA WEBB MD 12/06/18 Dextromethorphan Hb-Promethazine Hcl* (Promethazine DM* Syrup) 473 Ml Syrup, 5 ML PO Q6 PRN for COUGH for 5 Days, ML Prov:YAIMA VENCES MD 06/06/18 Azithromycin* (Zithromax*) 250 Mg Tablet, 250 MG PO .ZPACK DIRECTED, #6 TAB TAKE 500 MG (2 TABS) THE FIRST DAY THEN 250 MG (1 TAB) DAYS 2-5 Prov:YAIMA VENCES MD 06/06/18 Ibuprofen* (Motrin*) 800 Mg Tab, 800 MG PO Q6, #20 TAB Prov:YAIMA VENCES MD 06/06/18 Benazepril Hcl* (Lotensin*) 20 Mg Tablet, 20 MG PO DAILY, #30 TAB Prov:YAIMA VENCES MD 06/06/18 Ibuprofen* (Motrin*) 600 Mg Tab, 600 MG PO Q6H PRN for PAIN AND OR ELEVATED TEMP, #30 TAB Prov:LEIA MISTRY NP 10/06/17 Alprazolam* (Xanax*) 0.25 Mg Tablet, 0.25 MG PO Q8H PRN for ANXIETY, #7 TAB Prov:LEIA MISTRY NP 10/06/17 Azithromycin* (Zithromax*) 250 Mg Tablet, 250 MG PO .ZPACK DIRECTED, #6 TAB TAKE 500 MG (2 TABS) THE FIRST DAY THEN 250 MG (1 TAB) DAYS 2-5 Prov:BLAINE DO 10/01/17 Ibuprofen* (Motrin*) 800 Mg Tab, 800 MG PO Q8 PRN for PAIN AND OR ELEVATED TEMP, #30 TAB Prov:BLAINE DO 10/01/17 Hydroxyzine Hcl* (Hydroxyzine Hcl*) 50 Mg Tablet, 50 MG PO Q6 PRN for ANXIETY, #40 TAB Prov:BLAINE DO 10/01/17 Acetaminophen* (Tylophen*) 500 Mg Capsule, 1 CAP PO Q6H PRN for PAIN AND OR ELEV ATED TEMP, #30 CAP Prov:MINO MCGINNIS PA-C 08/27/17 Naproxen* (Naprosyn*) 500 Mg Tablet, 500 MG PO BID PRN for PAIN AND/OR INFLAMMATION, #30 TAB Prov:MINO MCGINNIS PA-C 08/27/17 Loratadine* (Claritin*) 10 Mg Capsule, 10 MG PO DAILY for 30 Days, CAP Prov:KARLIE,PATRICIA 07/29/17 Fluticasone Propionate (Flonase Allergy Relief) 9.9 Ml [place].susp, 2 SPRAY NASAL DAILY, #1 BOTTLE TO EACH NOSTRIL Prov:KARLIE,PATRICIA 07/29/17 Clarithromycin* (Clarithromycin*) 500 Mg Tablet, 500 MG PO BID for 10 Days, TAB Prov:KARLIE,PATRICIA 07/29/17 Hydroxyzine Hcl* (Hydroxyzine Hcl*) 25 Mg Tablet, 25 MG PO Q8H PRN for ITCHING, #30 TAB Prov:LEIA MISTRY NP 05/07/16 Sulfamethoxazole-Trimethoprim* (Bactrim* DS) 800-160 Mg Tab, 1 TAB PO BID for 10 Days, TAB Prov:LEIA MISTRY NP 05/07/16 Ibuprofen* (Motrin*) 800 Mg Tab, 800 MG PO Q6, #30 TAB Prov:YAIMA VENCES MD 09/10/15 Tramadol HCl (Tramadol HCl) 50 Mg Tab, 50 MG PO Q6H PRN for PAIN, #20 TAB Prov:YAIMA VENCES MD 09/10/15 Clotrimazole* (Clotrimazole* AF) 1% - 30 Gm Cream.gm., 1 APPLIC TOP BID for 10 Days, TUB Prov:JALIL PIERCE PA-C 07/07/15 Carbamide Peroxide* (Debrox*) 6.5% - 15 Ml Drops, 10 DROP LEFT EAR BID for 4 Days, BOTTLE Prov:JALIL PIERCE PA-C 07/07/15 Acetaminophen* (Acetaminophen*) 500 MG Extra Strength Tablet, 500 MG PO Q4H PRN for PAIN AND OR ELEVATED TEMP, #20 TAB Prov:JALIL PIERCE PA-C 07/07/15 Fluconazole* (Diflucan*) 150 Mg Tablet, 150 MG PO ONCE, #1 TAB Prov:CURT JEAN BAPTISTE 06/30/15 Clotrimazole* (Clotrimazole* AF) 1% - 30 Gm Cream.gm., 1 APPLIC TOP BID for 7 Days, TUB Prov:CURT JEAN BAPTISTE 06/30/15 Nystatin-Triamcinolone* (Nystatin-Triamcinolone* Cream) 15 Gm Cream.gm., 1 APPLIC TOP BID for 7 Days, TUB Prov:KAREN BACA MD 06/28/15 Prednisone* (Prednisone*) 20 Mg Tab, 20 MG PO DAILY for 5 Days Prov:BULMARO GUTHRIE PA-C 06/07/15 Diphenhydramine Hcl* (Benadryl*) 25 Mg Cap, 25 MG PO Q6, #20 CAP Prov:BULMARO GUTHRIE PA-C 06/07/15 Dicyclomine HCl (Dicyclomine HCl) 10 Mg Capsule, 10 MG PO QID, #20 CAP Prov:BULMARO GUTHRIE PA-C 06/07/15 Reported Medications [None ] No Conflict Check 06/08/13 Allergies Allergies: Coded Allergies: Penicillins (Verified Allergy, Mild, 08/27/17) Uncoded Allergies: IV CONTRAST (Allergy, Mild, 08/27/17) PMhx/Soc History of Surgery: No Anesthesia Reaction: No Hx Neurological Disorder: No Hx Respiratory Disorders: Yes (asthma) Hx Cardiac Disorders: No Hx Psychiatric Problems: No Hx Miscellaneous Medical Probl: No Hx Alcohol Use: No Hx Substance Use: No Hx Tobacco Use: No FmHx Family History: diabetes Physical Exam Vitals Vital Signs Date Temp Pulse Resp B/P (MAP) Pulse Ox O2 O2 Flow FiO2 Time Delivery Rate 12/06/18 98.2 72 20 141/89 97 09:30 (106) Physical Exam Const: No acute distress Head: Atraumatic Eyes: Normal Conjunctiva ENT: Normal External Ears, Nose and Mouth. Neck: Full range of motion. No meningismus. Resp: Clear to auscultation bilaterally, no wheezes rales or rhonchi. Cardio: Regular rate and rhythm, no murmurs Abd: Soft, non tender, non distended. Normal bowel sounds Skin: No petechiae or rashes Back: No midline or flank tenderness Ext: No cyanosis, or edema Neur: Awake and alert Psych: Normal Mood and Affect Procedures/MDM Is a 23-year-old male presents for evaluation of chest pain, vomiting and diarrhea. Given patient's history of prediabetes, I did recommend lab work, to evaluate for acute coronary syndrome, his EKG was otherwise unremarkable. The patient declined all lab work and wished to be discharged, he stated that he would rather follow-up with his primary care doctor and he otherwise feels well. I explained to him the risks of leaving without a complete workup, including , and permanent disability. The patient understood these risks, I encouraged him to return should his symptoms worsen, given a prescription for Zofran. At discharge she was in no acute distress EKG: Rate/Rhythm: Normal Sinus Rhythm QRS, ST, T-waves: No changes consistent w/ acute ischemia Impression: No evidence of ischemia or arrhythmia Departure Diagnosis: Primary Impression: Chest pain Chest pain type: unspecified Qualified Codes: R07.9 - Chest pain, unspecified Condition: Stable TOMEKA WEBB MD Dec 06, 2018 09:45
[2018-12-06] MEDS ORDERED: ONDA4TAB14 PO (09:51)
[2018-12-06] MEDS ORDERED: METF500T24 PO (10:23)
[2018-12-06 11:08] VITALS: BP 136/84; PULSE 86; RESP 20
== END 2018-12-06 11:12 | disposition home or self-care (01) ==
LOC: E/R 09:27
DX: R07.9 Chest pain, unspecified (principal); R40.2142 Coma scale, eyes open, spontaneous, at arrival to emergency department; R40.2362 Coma scale, best motor response, obeys commands, at arrival to emergency department; R40.2252 Coma scale, best verbal response, oriented, at arrival to emergency department; J45.909 Unspecified asthma, uncomplicated
CPT/HCPCS: 71045; 80053; 82962; 83690; 84484; 85025; 93005

== ENCOUNTER 2018-12-14 11:01 | Emergency (ER) | payer MEDICAID ==
[~2018-12-14] VITALS: Ht 175.3 cm; Wt 134.1 kg
[~2018-12-14 11:01] MED LIST changes: -ACET-141 PO; -ACET500C5 PO; -ALPR0.25 PO; -AZIT250T PO; -BACTDS PO; -BEN25 PO; -BENA20TA65 PO; -CARB15DR50 LEFT EAR; -CLAR500T PO; -CLOT30CR24 TOP; -D-ME473S2 PO; -DICY10CA40 PO; -FLUC150T PO; -FLUT9.9S NASAL; -HYDR-843 PO; -HYDR50TA15 PO; -IBUP-1542 PO; -IBUP800T48 PO; -LORA10CA PO; +METF500T24 PO; -NAPR-985 PO; -NYST15CR36 TOP; +ONDA4TAB14 PO; -PRED20TA PO; -TRAM50TA2 PO
[2018-12-14 11:05] VITALS: BP 142/86; PULSE 91; RESP 20; Ht 175.3 cm; Wt 134.1 kg
[2018-12-14] MEDS ORDERED: D-ME473S2 PO (12:26)
[2018-12-14] MEDS ORDERED: NAPR-985 PO (12:26)
[2018-12-14] MEDS ORDERED: PSEU-79 PO (12:26)
[2018-12-14] MEDS ORDERED: BENZ-6 PO (12:26)
--- NOTE | 2018-12-14 12:51 | ERD ---
ER Documentation Chief Complaint Chief Complaint Complains of a cough x 1 week HPI 23-year-old male presenting with cough times 1 week. He states that 3 days ago he had a fever. He has not taken medications today. He describes as a productive cough with runny nose and sore throat. He has not taken medications today. He has body aches. Denies medical problems. Allergic to penicillin and contrast. Social history denies. Surgical history denies ROS All systems reviewed and are negative except as per history of present illness. Medications Home Meds Active Scripts Pseudoephedrine Hcl* (Suphedrin*) 30 Mg Tablet, 30 MG PO Q6 PRN for CONGESTION, #30 TAB Prov:CHI MONTGOMERY PA-C 12/14/18 Naproxen* (Naprosyn*) 500 Mg Tablet, 500 MG PO BID PRN for PAIN AND/OR INFLAMMATION, #30 TAB Prov:CHI MONTGOMERY PA-C 12/14/18 Dextromethorphan Hb-Promethazine Hcl* (Promethazine DM* Syrup) 473 Ml Syrup, 5 ML PO Q6 PRN for COUGH, #100 ML Prov:CHI MONTGOMERY PA-C 12/14/18 Benzonatate* (Tessalon Perle*) 100 Mg Capsule, 100 MG PO Q8H PRN for COUGH, #30 CAP Prov:CHI MONTGOMERY PA-C 12/14/18 Ondansetron (Ondansetron Odt) 4 Mg Tab.rapdis, 4 MG PO Q6H PRN for NAUSEA AND/OR VOMITING, #10 TAB Prov:TOMEKA WEBB MD 12/06/18 Reported Medications Metformin Hcl* (Metformin Hcl*) 500 Mg Tablet, 500 MG PO WITH BREAKFAST DINNE, #60 TAB 12/06/18 Allergies Allergies: Coded Allergies: Penicillins (Verified Allergy, Mild, 12/14/18) Uncoded Allergies: IV CONTRAST (Allergy, Mild, 08/27/17) PMhx/Soc History of Surgery: No Anesthesia Reaction: No Hx Neurological Disorder: No Hx Respiratory Disorders: Yes (asthma) Hx Cardiac Disorders: No Hx Psychiatric Problems: No Hx Miscellaneous Medical Probl: No Hx Alcohol Use: No Hx Substance Use: No Hx Tobacco Use: No Smoking Status: Never smoker FmHx Family History: No diabetes, No coronary disease, No other Physical Exam Vitals Vital Signs Date Temp Pulse Resp B/P (MAP) Pulse Ox O2 O2 Flow FiO2 Time Delivery Rate 12/14/18 97.7 91 20 142/86 94 11:05 (104) Physical Exam GENERAL: The patient is well-appearing, well-nourished, in no acute distress HEENT: Atraumatic. Conjunctivae are pink. Pupils equal, round, and reactive to light. There is no scleral icterus. Tympanic membranes clear bilaterally. Oropharynx clear. NECK: C-spine is soft and supple. There is no meningismus. There is no cervical lymphadenopathy. CHEST: Clear to auscultation bilaterally. There are no rales, wheezes or rhonchi. HEART: Regular rate and rhythm. No murmurs, clicks, rubs or gallops. Procedures/MDM DIAGNOSTIC IMAGING REPORT Patient: PAULINO BERMAN : 1995 Age: 23 Sex: M MR #: [id number] DOS: 12/14/18 1142 Ordering MD: LAN MONTGOMERY PA-C Location: [facility] Room/Bed: PROCEDURE: XR Chest. CLINICAL INDICATION: chest pain TECHNIQUE: Single frontal view of the chest was obtained COMPARISON: CR CHEST 07/07/2015 FINDINGS: The heart and mediastinum are within normal limits. The lungs are clear. There is no pleural effusion or pneumothorax. RPTAT: AA IMPRESSION: No acute disease. MDM: 23-year-old male presenting with cough times 1 week. Patient's chest x-ray is within normal limits. I believe patient likely has viral syndrome. I do not feel antibiotics are indicated. Patient is discharged with supportive medications and told to follow-up with primary care within 1-2 days for close evaluation. Patient is told if symptoms change or worsen to immediately return to the ER. All questions answered at discharge Departure Diagnosis: Primary Impression: Cough Condition: Stable Patient Instructions: Cough, Chronic, Uncertain Cause, (Adult) Referrals: COMMUNITY CLINICS YOU HAVE RECEIVED A MEDICAL SCREENING EXAM AND THE RESULTS INDICATE THAT YOU DO NOT HAVE A CONDITION THAT REQUIRES URGENT TREATMENT IN THE EMERGENCY DEPARTMENT. FURTHER EVALUATION AND TREATMENT OF YOUR CONDITION CAN WAIT UNTIL YOU ARE SEEN IN YOUR DOCTORS OFFICE WITHIN THE NEXT 1-2 DAYS. IT IS YOUR RESPONSIBILITY TO [facility] IF YOU HAVE A PRIMARY DOCTOR --you should call your primary doctor and schedule an appointment IF YOU DO NOT HAVE A PRIMARY DOCTOR YOU CAN CALL OUR PHYSICIAN REFERRAL HOTLINE AT IF YOU CAN NOT AFFORD TO SEE A PHYSICIAN YOU CAN CHOSE FROM THE FOLLOWING [facility] [address] [facility] [address] [facility] [address] [employer] [address] [facility] [address] [facility] [facility] [address] Additional Instructions: FOLLOW UP WITH YOUR PRIMARY CARE PHYSICIAN TOMORROW.Return to this facility if you are not improving as expected. CHI MONTGOMERY PA-C Dec 14, 2018 12:51
== END 2018-12-14 13:03 | disposition home or self-care (01) ==
LOC: FTE 11:01
DX: R05 Cough (principal); J45.909 Unspecified asthma, uncomplicated; Z79.84 Long term (current) use of oral hypoglycemic drugs
CPT/HCPCS: 71045